=== PATIENT | female | born 1985 | race Caucasian/White ===

== ENCOUNTER 2019-09-28 05:00 | Inpatient (IN) | payer BC ==
[2019-09-28 06:44] VITALS: BMI 24.6
[2019-09-28 07:01] LABS: BASO % 0.1 % (0-2.0); EOS % 0.1 % (0-4.5); HEMATOCRIT 35.7 % (32.4-45.2); HEMOGLOBIN 11.9 GM/dL (10.7-15.3); LYMPH % 10.9 % (8-40); MCH 29.6 pg (25.7-33.7); MCHC 33.3 g/dl (32.0-36.0); MEAN CELL VOLUME 88.8 fl (80-96); MONO % 5.9 % (3.8-10.2); PLATELET COUNT 268 K/MM3 (134-434); RBC 4.02 M/mm3 (3.60-5.2); WHITE BLOOD COUNT 14.8 K/mm3 (4.0-10.0)
[2019-09-28 07:08] LABS: INR 0.91 (0.83-1.09); PROTHROMBIN TIME (PATIENT) 10.7 SEC (9.7-13.0)
[2019-09-28 07:10] LABS: ACTIVATED PTT 26.4 SECONDS (25.2-36.5)
[2019-09-28 07:28] LABS: BLOOD UREA NITROGEN 7.8 mg/dL (7-18); CREATININE 0.5 mg/dL (0.55-1.3); POTASSIUM 4.5 mmol/L (3.5-5.1)
--- NOTE | 2019-09-28 09:30 | HP ---
Past Medical History - Primary Care Physician PCP:: Juana Aguayo - Admission Chief Complaint: 33 yo @ 39.4 weeks c/o painful UC History of Present Illness: 33 yo @ 39.4 weeks c/o painful UC since midnight PMHX /PSHX - Anemia, healthy brusher tender HX - Menarche 14 yo G1 P o G1 - present History Source: Patient Limitations to Obtaining History: No Limitations (CF carrier, FOB neg) - Past Medical History ...: 1 ...Para: 0 ...LMP: 12/25/18 ...EDC by Sono: 10/01/19 Heme/Onc: Yes: Anemia - Past Surgical History Past Surgical History: Yes: None Hx Myomectomy: No Hx Transabdominal Cerclage: No - Smoking History Smoking history: Never smoked Have you smoked in the past 12 months: No - Alcohol/Substance Use Hx Alcohol Use: No History of Substance Use: reports: None - Social History Usual Living Arrangement: Yes: With Spouse Do you think of yourself as: Straight/Heterosexual ADL: Independent History of Recent Travel: No Home Medications - Allergies Allergies/Adverse Reactions: Allergies Allergy/AdvReac Type Severity Reaction Status Date / Time No Known Allergies Allergy Verified 09/28/19 06:47 - Home Medications Home Medications: Ambulatory Orders Vit,Calc76/Iron/Folic [Pnv 29-1 Tablet] 1 tab PO DAILY 09/28/19 Family Medical History Family History: Unremarkable Review of Systems - Review of Systems Constitutional: reports: No Symptoms Eyes: reports: No Symptoms HENT: reports: No Symptoms Neck: reports: No Symptoms Cardiovascular: reports: No Symptoms Respiratory: reports: No Symptoms Gastrointestinal: reports: No Symptoms Genitourinary: reports: Pain Breasts: reports: No Symptoms Reported Musculoskeletal: reports: No Symptoms Integumentary: reports: No Symptoms. denies: Wound Neurological: reports: No Symptoms Endocrine: reports: No Symptoms Hematology/Lymphatic: reports: No Symptoms Psychiatric: reports: No Symptoms Physical Exam - Maternity Vital Signs: Vital Signs Temperature 98.1 F 09/28/19 07:00 Pulse Rate 73 09/28/19 07:00 Respiratory Rate 20 09/28/19 07:00 Blood Pressure 116/61 09/28/19 07:00 O2 Sat by Pulse Oximetry (%) Constitutional: Yes: Well Nourished, No Distress Eyes: Yes: WNL HENT: Yes: WNL Neck: Yes: WNL Cardiovascular: Yes: WNL Lungs: Clear to auscultation Breast(s): Yes: WNL - Abdominal Exam/OB Fundal Height: 38 Number of Fetuses: Single Presentation: Vertex Contractions: Yes Regularity: Regular Intensity: Mod/Strong Monitor Mode: External Heart Rate Location: [facility] Category: I Accelerations: Uniform Decelerations: None - Vaginal Exam/OB Vaginal Bleeding: No Dilatation (cm): 9 Effacement (%): 100 Amniotic Membrane Status: Intact Presentation: Vertex/Position Station: 0 - Physical Exam Musculoskeletal: Yes: WNL Extremities: Yes: WNL Edema: No Integumentary: Yes: WNL Deep Tendon Reflex Grade: Normal +2 ...Motor Strength: WNL Psychiatric: Yes: WNL - Labs Lab Results: CBC, BMP 09/28/19 06:25 09/28/19 06:25 Hemorrhage Risk Assessment - Risk Factors Risk Score: 1 Risk Level: Medium Risk Problem List - Problems (1) 39 weeks gestation of Code(s): Z3A.39 - 39 WEEKS GESTATION OF (2) Cystic fibrosis carrier Code(s): Z14.1 - CYSTIC FIBROSIS CARRIER Assessment/Plan Admit to LD Anticipate
--- NOTE | 2019-09-28 09:35 | PN ---
Progress Note (short form) - Note Progress Note: Pt c/o pressure and urge to push VSS VE - FD, 0 st AROM clear fluid EFM baseline 130 bpm, reactive, cat 1 TOCO UC q 3 min A/P may push Close observation Problem List - Problems (1) 39 weeks gestation of Code(s): Z3A.39 - 39 WEEKS GESTATION OF (2) Cystic fibrosis carrier Code(s): Z14.1 - CYSTIC FIBROSIS CARRIER
[2019-09-28] MEDS ORDERED: OXYTOCIN 20 UNITS in 0.9% NS 20 UNIT/1,000 ML INFUS.BAG IV ONE ×2 (09:36→12:09)
[2019-09-28] MEDS ORDERED: ELECTROLYTE-148 SOLN 1,000 ML IV SCH (09:45)
[2019-09-28] MEDS ORDERED: BENZOCAINE 28 GM HEMORRHOIDAL OINTMENT TP PRN (10:18)
[2019-09-28] MEDS ORDERED: BISACODYL 10 MG SUPP.RECT RC PRN (10:18)
[2019-09-28] MEDS ORDERED: IBUPROFEN 600 MG TABLET (FP) PO PRN (10:18)
[2019-09-28] MEDS ORDERED: METHYLERGONOVINE MALEATE 0.2 MG/1 ML AMP IM PRN (10:18)
[2019-09-28] MEDS ORDERED: ACETAMINOPHEN 325 MG TABLET (FP) PO PRN (10:18)
[2019-09-28] MEDS ORDERED: WITCH HAZEL 50% (TUCKS) 40 PAD/JAR PAD TP PRN (10:18)
[2019-09-28] MEDS ORDERED: BENZOCAINE 20% 57 GM BOTTLE TP PRN (10:18)
--- NOTE | 2019-09-28 10:18 | PN ---
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
[2019-09-28] MEDS ORDERED: OXYTOCIN 20 UNITS in 0.9% NS 20 UNIT/1,000 ML INFUS.BAG IV SCH (10:30)
[2019-09-28 11:14] LABS: CORD BASE EXCESS -1.7 mmol/L (0-2); CORD HCO3 20.4 mmHg (20-29); CORD PCO2 28.2 mmHg (30-78); CORD pH 7.477 (7.14-7.44)
[2019-09-28 11:16] LABS: CORD HCO3 21.2 mmHg (20-29); CORD PCO2 39.1 mmHg (30-78); CORD pH 7.352 (7.14-7.44)
[2019-09-28] MEDS: FERROUS SO4 325 MG TABLET (FP) PO SCH ×2 (13:37→17:47)
[2019-09-29 08:25] LABS: BASO % 0.2 % (0-2.0); EOS % 0.4 % (0-4.5); HEMATOCRIT 37.1 % (32.4-45.2); HEMOGLOBIN 12.6 GM/dL (10.7-15.3); LYMPH % 12.7 % (8-40); MCH 30.3 pg (25.7-33.7); MEAN CELL VOLUME 89.3 fl (80-96); MEAN PLT VOLUME 8.1 fl (7.5-11.1); MONO % 6.3 % (3.8-10.2); NEUT % 80.4 % (42.8-82.8); PLATELET COUNT 271 K/MM3 (134-434); RBC 4.15 M/mm3 (3.60-5.2); RDW 15.3 % (11.6-15.6); WHITE BLOOD COUNT 16.8 K/mm3 (4.0-10.0)
[2019-09-29] MEDS: FERROUS SO4 325 MG TABLET (FP) PO SCH ×2 (08:53→12:25)
[2019-09-29 09:06] VITALS: BP 105/65; PULSE 69; TEMP 97.7
[2019-09-29] MEDS ORDERED: PRENATAL VITAMINS W/ FOLIC ACID TABLET (FP) PO SCH (10:00)
[2019-09-29] MEDS ORDERED: DIPHTH,PERTUSS(ACELL),TET 0.5 ML DISP.SYRIN IM ONE (10:05)
--- NOTE | 2019-09-29 11:20 | DS ---
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: Vital Signs Temperature 97.7 F 09/29/19 09:04 Pulse Rate 69 09/29/19 09:04 Respiratory Rate 18 09/29/19 09:04 Blood Pressure 105/65 09/29/19 09:04 O2 Sat by Pulse Oximetry (%) 98 09/28/19 19:09 Constitutional: Yes: No Distress Cardiovascular: Yes: Regular Rate and Rhythm Respiratory: Yes: Regular Gastrointestinal: Yes: Normal Bowel Sounds ....Post : Yes: Uterus firm, Slight lochia rubra Breast(s): Yes: WNL Labs: CBC, BMP 09/29/19 07:15 09/28/19 06:25 Delivery - Delivery Vaginal Delivery: No Problems, Spontaneous Type of Anesthesia: None Episiotomy/Laceration: None EBL (cc): 400 Delivery, Single - Stages of Labor Date 1st Stage Initiatied: 09/27/19 Time 1st Stage Initiated: 21:00 Date 2nd Stage Initiated: 09/28/19 Time 2nd Stage Initiated: 09:40 Date of Delivery: 09/28/19 Time of Delivery: 09:58 Time Placenta Delivered: 10:00 Placenta: Yes: Spontaneous - Condition of Infant 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 Infant Gender: Female Weight: 3.118 kg Position: OA Total Hours ROM (Hrs/Mins): 20MIN - 1 Minute Total Score: 8 5 Minutes Total Score: 9 - Neptune Feeding Plan Initial Plan: Exclusive throughout hospitalization Discharge Summary Problems reviewed: Yes Reason For Visit: LABOR Current Active Problems 39 weeks gestation of (Acute) Cystic fibrosis carrier (Acute) Hospital Course: no complications Condition: Good - Instructions Diet, Activity, Other Instructions: regular diet, normal activity, pelvic rest 6 weeks Referrals: Juana Aguayo MD [Staff Physician] - Disposition: HOME - Home Medications Comprehensive Discharge Medication List: Ambulatory Orders Vit,Calc76/Iron/Folic [Pnv 29-1 Tablet] 1 tab PO DAILY 09/28/19
== END 2019-09-29 15:10 | disposition home or self-care (01) | DRG 807 ==
LOC: JLDR 05:00 → J3W 14:45
PROVIDERS: ADMIT Obstetrics & Gynecology; ATTEND Obstetrics & Gynecology
PROC: 10907ZC Drainage of Amniotic Fluid, Therapeutic from Products of Conception, Via Natural or Artificial Opening (ICD-10-PCS; principal; 2019-09-28)
PROC: 10E0XZZ Delivery of Products of Conception, External Approach (ICD-10-PCS; 2019-09-28)
DX: O80 Encounter for full-term uncomplicated delivery (principal); Z37.0 Single live birth; Z3A.39 39 weeks gestation of pregnancy; Z14.1 Cystic fibrosis carrier
CPT/HCPCS: 36415; 36600; 59409; 80048; 82803; 85025; 85610; 85730; 86780; 86850; 86900; 86901; 90715